=== PATIENT | female | born 1945 | race Caucasian/White ===

== ENCOUNTER → 2016-10-21 | Outpatient (CLI) | payer OTHER, BC ==
--- NOTE | 2016-10-21 10:14 | DX ---
Left Wrist, Four Views 9:50 a.m. Clinical History: 71-year-old female who slipped on wet tile landing on her arm sustaining a fracture on September 16, 2016 and complaining of persistent lateral and medial wrist pain. The patient is cur rently in a short arm cast. ICD-10 Diagnostic Code: S62.1028. Comparison Study: None currently available. Findings: The bones are demineralized, and when clinically feasible, a DEXA scan is suggested. There is healing sclerosis at the site of the transversely-oriented slightly impacted distal radial metaphy seal fracture. On the lateral view, there is a dorsal cortical fragment seen. There is some minor res idual displacement of the pronator fat pad. There are some mild degenerative changes along the latera l carpal row. Impression: Healing distal radial metaphyseal fracture, with bone demineralization. Correlation with previous studies would be helpful to assess for interval change, and when clinically feasible, a DEXA scan is suggested.
== END ==
LOC: BMCIMAGING 09:14
PROVIDERS: ATTEND Orthopaedic Surgery
DX: S62.102D Fracture of unspecified carpal bone, left wrist, subsequent encounter for fracture with routine healing (principal)

== ENCOUNTER → 2016-11-18 | Outpatient (CLI) | payer OTHER, BC | LOC: BMCIMAGING 08:58 | PROVIDERS: ATTEND Orthopaedic Surgery | DX: S52.502D Unspecified fracture of the lower end of left radius, subsequent encounter for closed fracture with routine healing (principal) ==

== ENCOUNTER → 2017-01-19 | Outpatient (CLI) | payer OTHER, BC | LOC: BMCIMAGING 09:01 | PROVIDERS: ATTEND Orthopaedic Surgery | DX: S52.502D Unspecified fracture of the lower end of left radius, subsequent encounter for closed fracture with routine healing (principal) ==